=== PATIENT | male | born 1960 | race Two or more races ===

== ENCOUNTER 2017-04-28 10:25 | Emergency (ER) | payer OTHER ==
[~2017-04-28] VITALS: Ht 180.3 cm; Wt 97.1 kg
[~2017-04-28 10:25] MED LIST: ANTIVERT25 M1 PO; ATENOLOL25 MG PO; BENADRYL25 MG PO; DICLOFENAC POTA50 MG PO; DICLOFENAC SODI50 MG PO; GABAPENTIN400 MG PO; IBUPROFEN800 MG PO; ISOSORBIDE DINI20 MG PO; KETO10TA2 PO; MOTRIN800 MG PO; NITROGLYCERIN0.4 MG SL; ORPH100T PO; PREDNISONE5 MG/DOSE- PO; THIORIDAZINE HC10 MG PO; ZYRTEC10 M3 PO
[2017-04-28] MEDS ORDERED: ISOSORBIDE MONO30 MG PO (13:12)
[2017-04-28] MEDS ORDERED: ATENOLOL50 MG PO (13:12)
[2017-04-28] MEDS ORDERED: NEURONTIN800 MG PO (13:12)
[2017-04-28] MEDS ORDERED: SIMVASTATIN20 MG PO (13:12)
[2017-04-28] MEDS ORDERED: HYDROCHLOROTHIA25 MG PO (13:12)
[2017-04-28] MEDS ORDERED: METFORMIN HCL850 MG PO (13:12)
[2017-04-28] MEDS ORDERED: LIPITOR20 MG PO (13:15)
== END 2017-04-28 13:03 | disposition home or self-care (01) ==
LOC: ER 10:25
DX: N39.0 Urinary tract infection, site not specified (principal)

== ENCOUNTER → 2017-07-29 | Emergency (ER) | payer OTHER ==
[~2017-07-29] VITALS: Ht 180.3 cm; Wt 92.1 kg
[~2017-07-29] MED LIST changes: +ATENOLOL50 MG PO; +COZAAR50 MG; +HYDROCHLOROTHIA25 MG PO; +ISOSORBIDE MONO30 MG PO; +LIPITOR20 MG PO; +METFORMIN HCL850 MG PO; +NEURONTIN800 MG PO; +SIMVASTATIN20 MG PO
== END | disposition home or self-care (01) ==
LOC: ER 11:22
DX: R10.32 Left lower quadrant pain (principal)

== ENCOUNTER 2021-02-18 13:57 | Emergency (ER) | payer OTHER ==
[~2021-02-18] VITALS: Ht 177.8 cm; Wt 31.8 kg
[2021-02-18] MEDS ORDERED: CYCLOBENZAPRINE10 MG PO (19:23)
== END 2021-02-18 20:24 | disposition home or self-care (01) ==
LOC: ER 13:57
DX: M62.838 Other muscle spasm (principal); R07.89 Other chest pain

== ENCOUNTER 2022-01-01 10:15 | Emergency (ER) | payer OTHER ==
[~2022-01-01] VITALS: Ht 180.3 cm; Wt 96.6 kg
[~2022-01-01 10:15] MED LIST changes: +CYCLOBENZAPRINE10 MG PO
== END 2022-01-01 13:38 | disposition home or self-care (01) ==
LOC: ER 10:15
DX: L30.8 Other specified dermatitis (principal); E11.9 Type 2 diabetes mellitus without complications; I10 Essential (primary) hypertension

== ENCOUNTER → 2022-09-15 | Emergency (ER) | payer OTHER ==
[~2022-09-15] VITALS: Ht 180.3 cm; Wt 90.3 kg
[~2022-09-15] MED LIST changes: +CEFDINIR300 MG PO; +DRAMAMINE LESS25 MG PO; +GLIPIZIDE XL5 MG PO; +HORIZANT300 MG PO; +PEPCID AC20 MG PO; +PRAVASTATIN SOD40 MG PO; +TOPROL XL50 M1; +ZESTRIL10 M1
== END | disposition home or self-care (01) ==
LOC: ER 12:38
DX: Z53.21 Procedure and treatment not carried out due to patient leaving prior to being seen by health care provider (principal)